=== PATIENT | male | born 1960 | race Caucasian/White ===

== ENCOUNTER 2023-11-18 20:03 | Emergency (ER) | payer OTHER, SELFPAY ==
[2023-11-18 20:12] VITALS: BP 184/96; PULSE 92; RESP 16; TEMP 37; O2SAT 98; BMI 28.7
--- NOTE | 2023-11-18 20:35 | DI.CT.S_ITS ---
PROCEDURE: CT KIDNEY URETER BLADDER (KUB) INDICATIONS: left flank pain TECHNIQUE: Axial sections were acquired from the lung bases to the pubic symphysis. Coronal and sagittal reformats were performed. For radiation dose reduction, the following was used: automated exposure control, adjustment of mA and/or kV according to patient size. COMPARISON: None. FINDINGS: Image quality: Diagnostic. Lower Chest: No significant findings. URINARY: Right Kidney: There is no hydronephrosis or obstructing stones. [id number] right perinephric fat stranding is seen. Right Ureter: No hydroureter. Left Kidney: There is no obstructing stone or hydronephrosis. [id number] left perinephric fat stranding is seen. Left Ureter: No hydroureter. Bladder: Lobulated bladder wall thickening particularly involving left anterior bladder wall measures up to 1 cm in thickness. Tiffanie cystic fat stranding is also seen. No calcified bladder stones. Enlarged prostate gland with mass effect on floor of urinary bladder is seen. ABDOMEN: Liver: No contour-deforming solid mass. Gallbladder: Gallbladder is surgically absent. Biliary ducts: No biliary dilation. Pancreas: No ductal dilation. Spleen: Size is within normal limits. Adrenal Glands: No adrenal nodules. Stomach and Bowel: There is no bowel obstruction or abnormal bowel wall thickening. No mesenteric fat stranding. Normal appendix is seen in right lower quadrant. Mild sigmoid diverticulosis, no abnormal sigmoid colon wall thickening or pericolonic fat stranding. Peritoneum: No abnormal intraperitoneal fluid. No free air. Ventral Wall: No hernia. Abdominal Nodes: No enlarged retroperitoneal or mesenteric lymph nodes. Vessels: Aorta and inferior vena cava are normal in size. PELVIS: Pelvic Organs: Enlarged prostate gland with mild mass effect on floor of urinary bladder. Pelvic Nodes: Unremarkable. Miscellaneous: Bilateral inguinal hernia are seen containing fat only. Bones: No suspicious bony lesions. No acute vertebral body compression fracture. Degenerative disc disease throughout lumbar spine is seen. IMPRESSION: 1. No obstructing stones or hydronephrosis. No hydroureter. Bilateral perinephric fat stranding and lobulated bladder wall thickening concerning for infectious or inflammatory process such as cystitis and pyelonephritis suggest clinical correlation. Mildly enlarged prostate gland with mass effect on floor of urinary bladder. No calcified bladder stones. 2. No bowel obstruction or abnormal bowel wall thickening. Normal appendix. Mild sigmoid diverticulosis without evidence of acute diverticulitis. No free fluid or free air. Dictated by: Mathieu Hsu M.D. on 11/18/2023 at 21:33 Approved by: Mathieu Hsu M.D. on 11/18/2023 at 21:38
[2023-11-18 21:13] LABS: Add Manual Diff / Slide Review NO; Basophils Absolute Auto 0 /uL (0-100); Basophils Percent Auto 0.3 % (0-2); Eosinophils Absolute Auto 0 /uL (0-450); Eosinophils Percent Auto 0.4 % (2-4); Hematocrit 34.8 % (41-53); Hemoglobin 11.8 g/dL (13.5-17.5); Lymphocytes Absolute Auto 1700 /uL (1100-4500); Lymphocytes Percent Auto 22.7 % (25-40); Mean Corpuscular Hemoglobin 32.3 PG (26-34); Monocytes Absolute Auto 600 /uL (0-900); Monocytes Percent Auto 7.3 % (3-14); Neutrophils Absolute Auto 5300 /uL (1500-7000); Neutrophils Percent Auto 69.3 % (50-75); Platelet Count 217 X10^3/uL (150-400); Red Blood Cell Count 3.67 X10^6/uL (4.5-5.9); Red Cell Distribution Width 13.7 % (11.6-14.8); White Blood Cell Count 7.6 X10^3/uL (4.5-11.0)
[2023-11-18] MEDS: KETOROLAC 30 MG/ML VIAL 15 MG IV (21:15)
[2023-11-18] MEDS: SODIUM CHLORIDE 0.9% 1,000 ML 1000 ML IV (21:16)
[2023-11-18 21:28] LABS: Alanine Aminotransferase 28 IU/L (<50); Albumin 4.7 g/dL (3.5-5.0); Albumin Globulin Ratio 1.3 (1.0-2.8); Alkaline Phosphatase 65 U/L (38-126); Aspartate Aminotransferase 40 IU/L (17-59); BUN Creatinine Ratio 32.8 (6-22); Bilirubin Total 0.7 mg/dL (0.2-1.3); Blood Urea Nitrogen 22 mg/dL (9-20); Calcium 10.3 mg/dL (8.4-10.2); Carbon Dioxide 26 mmol/L (22-32); Chloride 105 mmol/L (98-107); Estimated Glomerular Filt Rate > 60 mL/min (>60); Globulin 3.5 g/dL (1.7-4.1); Glucose 114 mg/dL (80-110); HEMOLYSIS < 15 (0-50); Sodium 140 mmol/L (137-145); Total Protein 8.2 g/dL (6.3-8.2)
[2023-11-18 22:59] LABS: Bacteria Urine None Seen; Culture Indicated Urine Cult Not Indicated; Hyaline Casts Urine 0-1/LPF; RBC Urine None Seen (0-5/HPF); Squamous Epithelial Cell Urine 0-1 /HPF (0-5/HPF); Urine Volume 10mL (spun); WBC Urine None Seen (0-5/HPF)
--- NOTE | 2023-11-19 01:38 | ED.GENADULT ---
HPI - General Adult General Chief complaint: Urogenital-Male Stated complaint: kidney issues Time Seen by Provider: 11/18/23 20:35 Source: patient Mode of arrival: Ambulatory History of Present Illness HPI narrative: 63-year-old gentleman with a history of diabetes, hypertension, he is anticoagulated who awoke this morning with left flank pain. States that he has not having any dysuria, urinary hesitancy or frequency. Was seen initially in the walk-in clinic and they advised further evaluation in the emergency department. He has not had any fever, chills, cough, nausea, vomiting or diarrhea. Related Data Home Medications Medication Instructions Recorded Confirmed metformin 500 mg tablet 1,000 mg PO BID 11/18/23 11/18/23 Allergies Allergy/AdvReac Type Severity Reaction Status Date / Time codeine Allergy Verified 11/18/23 19:37 Latex, Natural Rubber Allergy Verified 11/18/23 19:37 Review of Systems Review of Systems Narrative: Pertinent positive and negative findings as per HPI Patient History Social History Smoking Status: Never smoker Smoking Status: Never smoker alcohol intake frequency: 0-2 drinks per day Substance Use Type: marijuana Exam Initial Vital Signs Initial Vital Signs: Vital Signs Temperature 98.6 F 11/18/23 20:12 Pulse Rate 92 H 11/18/23 20:12 Respiratory Rate 16 11/18/23 20:12 Blood Pressure 184/96 H 11/18/23 20:12 Pulse Oximetry 98 11/18/23 20:12 Oxygen Delivery Method Room Air 11/18/23 20:12 General: Healthy appearing, in mild distress. Able to give a complete and coherent history. Well-nourished well-developed HEENT: Moist mucous membranes, normal sclera with reactive pupils, Respiratory: Lungs are clear to auscultation, no wheezing no rales no rhonchi. Full and symmetrical air movement Cardiac: Regular rate and rhythm no murmurs no bruits Abdomen: Soft, nontender, he has a large abrasion and hematoma over his left flank correlating with his area of tenderness Skin: Warm and dry, Neurologic: Grossly neurologically intact with no obvious asymmetries or abnormalities Extremities: No trauma, well perfused Psych: Cooperative, appropriate insight and affect Course Orders Ordered: ED Orders 11/18/23 20:35 CT kidney ureter bladder (KUB) Stat 11/18/23 21:05 Complete Blood Count AUTO DIFF Stat Comprehensive Metabolic Panel Stat 11/18/23 21:06 Urine Microscopic Stat Discontinued Medications Sodium Chloride (Normal Saline 0.9%) 1,000 mls @ 1,000 mls/hr IV BOLUS ONE Stop: 11/18/23 21:34 Last Infusion: 11/18/23 22:01 Dose: Infused Documented By: Admin: 11/18/23 21:16 Dose: 1,000 mls/hr Documented By: JORDEN Ketorolac Tromethamine (Ketorolac 30 Mg/Ml Vial) 15 mg IV NOW ONE Stop: 11/18/23 20:36 Last Admin: 11/18/23 21:15 Dose: 15 mg Documented By: JORDEN Ondansetron HCl (Ondansetron 4 Mg/2 Ml Inj) 4 mg IV NOW ONE Stop: 11/18/23 20:36 Last Admin: 11/18/23 21:43 Dose: Not Given Documented By: JORDEN Vital Signs Vital signs: Vital Signs - 8 hr 11/18/23 20:12 Temperature 98.6 F Pulse Rate 92 H Respiratory Rate 16 Blood Pressure 184/96 H Pulse Oximetry 98 Oxygen Delivery Method Room Air Medical Decision Making Lab Data 11/18/23 21:05 11/18/23 21:05 Labs: Lab Results 11/18/23 11/18/23 Range/Units 21:05 21:06 WBC 7.6 (4.5-11.0) X10^3/uL RBC 3.67 L (4.5-5.9) X10^6/uL Hgb 11.8 L (13.5-17.5) g/dL Hct 34.8 L (41-53) % MCV 95.0 (80-100) fL MCH 32.3 (26-34) PG MCHC 34.0 (30-36) % RDW 13.7 (11.6-14.8) % Plt Count 217 (150-400) X10^3/uL Neut % (Auto) 69.3 (50-75) % Lymph % (Auto) 22.7 L (25-40) % [place] % (Auto) 7.3 (3-14) % Eos % (Auto) 0.4 L (2-4) % Baso % (Auto) 0.3 (0-2) % Neut # (Auto) 5300 (0120-0137) /uL Lymph # (Auto) 1700 (8409-5978) /uL [place] # (Auto) 600 (0-900) /uL Eos # (Auto) 0 (0-450) /uL Baso # (Auto) 0 (0-100) /uL Sodium 140 (137-145) mmol/L Potassium 4.0 (3.4-5.1) mmol/L Chloride 105 (98-107) mmol/L Carbon Dioxide 26 (22-32) mmol/L BUN 22 H (9-20) mg/dL Creatinine 0.67 (0.66-1.25) mg/dL Estimated GFR > 60 (>60) mL/min BUN/Creatinine Ratio 32.8 H (6-22) Glucose 114 H (80-110) mg/dL Calcium 10.3 H (8.4-10.2) mg/dL Total Bilirubin 0.7 (0.2-1.3) mg/dL AST 40 (17-59) IU/L ALT 28 (<50) IU/L Alkaline Phosphatase 65 (38-126) U/L Total Protein 8.2 (6.3-8.2) g/dL Albumin 4.7 (3.5-5.0) g/dL Globulin 3.5 (1.7-4.1) g/dL Albumin/Globulin Ratio 1.3 (1.0-2.8) Urine RBC None seen (0-5/HPF) Urine WBC None seen (0-5/HPF) Ur Squamous Epith Cells 0-1 /hpf (0-5/HPF) Urine Bacteria None seen (None) Hyaline Casts 0-1/lpf (None) Ur Culture Indicated? Cult not indicated Vol Urine Centrifuged 10ml (spun) Urine Dip Bedside Urine Glucose Negative Bedside Urine Bilirubin - Negative Bedside Urine Ketone +/- 5 Urine Specific [place] 1.03 Bedside Urine Occult Blood - Negative Bedside Urine pH 6 Bedside Urine Protein ++ 100 Bedside Urine Urobilinogen - Negative Bedside Urine Nitrite - Negative Bedside Urine Leukocytes - Negative Esterase Point of care testing: Urine Dip Bedside Urine Glucose Negative Bedside Urine Bilirubin - Negative Bedside Urine Ketone +/- 5 Urine Specific [place] 1.03 Bedside Urine Occult Blood - Negative Bedside Urine pH 6 Bedside Urine Protein ++ 100 Bedside Urine Urobilinogen - Negative Bedside Urine Nitrite - Negative Bedside Urine Leukocytes - Negative Esterase MDM Narrative Medical decision making narrative: CC: Left flank pain Complicating co-morbidities: Hypertension, hyperlipidemia, anticoagulation Data collected from: patient Differential considered: Trauma, retroperitoneal bleed, kidney stone, pyelonephritis, diverticulitis Exam documented above, pertinent findings include: He has a large bruise that appears to be less than 24 hours old with an abrasion associated with it all along the area of concern. Lab Test results independently reviewed as above. Pertinent findings: CBC shows no leukocytosis, mild anemia at 11.8 and 34.8 with a normal MCV. Chemistries show minimal abnormalities with a calcium at 10.3, normal renal function, no significantly elevated liver studies Urine today shows no red cells, white cells, does not appear to be infected Imaging studies independently reviewed: CT scan of the abdomen does not show any specific findings including kidney stone or retroperitoneal hematoma Discussion: 63-year-old gentleman with increasing left flank pain likely secondary to a fall, he is unsure how he actually bruised himself. Being anticoagulated risk for retroperitoneal bleeding is certainly considered and was not identified on CT scan. He does show minor amount of anemia and that certainly could be attributed to the superficial hematoma appreciated on his left flank. There was no evidence of additional bony injury. Findings reviewed with the patient. We discussed pain control. You can certainly use Tylenol and heating packs. No nonsteroidals due to his anticoagulation. We will give him 4 tablets of Percocet to use over the next 24-48 hours. He is aware of the constipating side effects. Requests a note from work as he has not able to bend and lift to pick things up. At this point he is safe for discharge Discharge Plan Departure Patient Disposition: Home Clinical Impression: Hematoma of left flank Qualifiers: Encounter type: initial encounter Qualified Code(s): S30.1XXA - Contusion of abdominal wall, initial encounter Abrasion of flank Qualifiers: Encounter type: initial encounter Qualified Code(s): S30.811A - Abrasion of abdominal wall, initial encounter Instructions: DI for Flank Pain Activity Restrictions/Additional Instructions: Thank you for coming in tonight It looks like you fell sometime in the last 24 hours and have a large abrasion and developing hematoma on your left flank which is causing your pain. The CT scan does not show any evidence of bleeding inside, there was no kidney stones, kidney abnormalities or diverticulitis appreciated. You are going to be sore for the next 24-48 hours and then should begin to improve somewhat. I have given you a small prescription of Percocet to use for pain control over the next 24 hours. Beyond that heating pad will likely be helpful. Making sure that you are being up and staying mobile we will be helpful. Tylenol can be added to an anticoagulant but nonsteroidals should be avoided with blood thinners. If you find that you are getting worse or develop any new symptoms, please feel free to return to the emergency department for further evaluation. Prescriptions: No Action metformin 500 mg tablet 1,000 mg PO BID Referrals: Miscellaneous,Doctor, [Primary Care Provider] - Stand Alone Forms: Patient Portal/API, Work Release Note
[2023-11-19 02:04] VITALS: BP 201/90; PULSE 66; RESP 16; O2SAT 100
== END 2023-11-19 02:10 | disposition home or self-care (01) ==
PROVIDERS: Emergency Provider Emergency Medicine
DX: S30.1XXA Contusion of abdominal wall, initial encounter (principal); S30.811A Abrasion of abdominal wall, initial encounter; W18.30XA Fall on same level, unspecified, initial encounter
CPT/HCPCS: 36415; 74176; 80053; 81003; 81015; 85025; 96361; 96374; 99284; J1885

== ENCOUNTER → 2025-04-25 11:53 | Outpatient (CLI) | payer OTHER, SELFPAY ==
--- NOTE | 2025-04-25 11:57 | DI.RAD.S_ITS ---
PROCEDURE: XR CHEST 2V INDICATIONS: Shortness for breath TECHNIQUE: 2 views of the chest were acquired. COMPARISON: None. FINDINGS: Heart, mediastinum and pulmonary vascular: Heart is normal in size and configuration. Mediastinum is unremarkable. Pulmonary vascular is normal. Lungs: Clear Pleural spaces: Normal-no effusions or pneumothorax. IMPRESSION: No acute cardiopulmonary disease evident. Dictated by: Anil Solo M.D. on 04/26/2025 at 9:49 Approved by: Anil Solo M.D. on 04/26/2025 at 9:50
== END ==
PROVIDERS: Referring Provider Nurse Practitioner Family; Visit Provider Nurse Practitioner Family
DX: R06.02 Shortness of breath (principal)
CPT/HCPCS: 71046